=== PATIENT | female | born 1955 | race Caucasian/White ===

== ENCOUNTER 2022-08-07 10:43 | Outpatient (CLI) | payer OTHER, SELFPAY ==
[2022-08-07 13:46] LABS: Anion Gap 7 mmol/L (8-16); Blood Urea Nitrogen 13 mg/dL (7-17); Calcium 8.7 mg/dL (8.4-10.2); Carbon Dioxide 28 mmol/L (22-30); Chloride 104 mmol/L (98-107); Estimated Glomerular Filt Rate > 60; Glucose 254 mg/dL (65-110); Potassium 4.2 mmol/L (3.4-5.0); Sodium 139 mmol/L (137-145)
[2022-08-07 14:19] LABS: Free T4 Free Thyroxine 2.57 ng/mL (0.78-2.19); Vitamin D 25 Hydroxy 38.3 ng/mL
== END 2022-08-07 10:44 | disposition home or self-care (01) ==
PROVIDERS: Visit Provider Internal Medicine Endocrinology, Diabetes & Metabolism
DX: E89.0 Postprocedural hypothyroidism (principal); M81.0 Age-related osteoporosis without current pathological fracture; R79.89 Other specified abnormal findings of blood chemistry
CPT/HCPCS: 36415; 80048; 82306; 84439; 84443

== ENCOUNTER 2022-09-01 10:20 | Outpatient (CLI) | payer OTHER, SELFPAY ==
[2022-09-01 17:42] LABS: Thyroid Stimulating Hormone 0.144 uIU/mL (0.465-4.680)
[2022-09-01 20:10] LABS: Free T4 Free Thyroxine 2.93 ng/mL (0.78-2.19)
== END 2022-09-01 10:21 | disposition home or self-care (01) ==
LOC: ANHWCLAB 10:21
PROVIDERS: Visit Provider Internal Medicine Endocrinology, Diabetes & Metabolism
DX: E89.0 Postprocedural hypothyroidism (principal)
CPT/HCPCS: 36415; 84439; 84443

== ENCOUNTER 2022-10-14 10:49 | Outpatient (CLI) | payer OTHER, SELFPAY | END 2022-10-14 10:50 | disposition home or self-care (01) | LOC: ANHWCLAB 10:50 | PROVIDERS: Visit Provider Internal Medicine Endocrinology, Diabetes & Metabolism | DX: E89.0 Postprocedural hypothyroidism (principal) | CPT/HCPCS: 36415; 84439; 84443 ==

== ENCOUNTER 2023-11-26 10:35 | Outpatient (CLI) | payer OTHER, SELFPAY ==
[2023-11-26 15:13] LABS: Free T4 Free Thyroxine 1.96 ng/mL (0.78-2.19)
== END 2023-11-26 10:36 | disposition home or self-care (01) ==
PROVIDERS: PCP Family Medicine; Visit Provider Internal Medicine Endocrinology, Diabetes & Metabolism
DX: E89.0 Postprocedural hypothyroidism (principal)
CPT/HCPCS: 36415; 84439; 84443